=== PATIENT | male | born 1990 | race Caucasian/White ===

== ENCOUNTER 2018-08-12 10:12 | Inpatient (IN) | payer BC ==
[2018-08-12 10:28] VITALS: BMI 20.7
--- NOTE | 2018-08-12 12:49 | HP ---
COWS - Scale Resting Pulse: 1= [place] 81-100 Sweatin= Chills/Flushing Restless Observation: 3= Extraneous Movement Pupil Size: 2= Moderately Dilated Bone or Joint Aches: 2= Severe Diffuse Aches Runny Nose/ Eye Tearin= Runny Nose/Eyes GI Upset > 30mins: 2= Nausea/Diarrhea Tremor Observation: 2= Slight Tremor Visible Yawning Observation: 2= >3x During Session Anxiety or Irritability: 2=Irritable/Anxious Goose Flesh Skin: 0=Smooth Skin COWS Score: 19 CIWA Score Nausea/Vomitin Muscle Tremors: 2 Anxiety: 2 Agitation: 2 Paroxysmal Sweats: 1-Minimal Palms Moist Orientation: 0-Oriented Tacttile Disturbances: 1-Very Mild Itch/Numbness Auditory Disturbances: 1-Very Mild Visual Disturbances: 0-None Headache: 2-Mild CIWA-Ar Total Score: 13 - Admission Criteria OASAS Guidelines: Admission for Medically Managed Detox: Requires at least one of the followin. CIWA greater than 12 2. Seizures within the past 24 hours 3. Delirium tremens within the past 24 hours 4. Hallucinations within the past 24 hours 5. Acute intervention needed for co occurring medical disorder 6. Acute intervention needed for co occurring psychiatric disorder 7. Severe withdrawal that cannot be handled at a lower level of care (continued vomiting, continued diarrhea, abnormal vital signs) requiring intravenous medication and/or fluids 8. Patient presents the following: CIWA greater than 12 Admission Criteria Met: Admission criteria met Admission ROS S - [facility] Chief Complaint: i am here to stop using heroin and xanax Allergies/Adverse Reactions: Allergies Allergy/AdvReac Type Severity Reaction Status Date / Time codeine Allergy Severe Hives Verified 08/12/18 11:44 History of Present Illness: this 28 years old male with heroin and xanax dependence,seeking detox, withdrawal symptom , multiple admissions in detox and rehab but keep relapsing last detox [facility] in 06/28/18 to 06/29/18 not completed nicotine dependence 1 pack /day, weight loss longest period of sobriety 8 months Exam Limitations: No Limitations - Ebola screening Have you traveled outside of the country in the last 21 days: No Have you had contact with anyone from an Ebola affected area: No Have you been sick,other than usual withdrawal symptoms: No Do you have a fever: No - Review of Systems Constitutional: Chills, Loss of Appetite, Malaise, Night Sweats, Changes in sleep, Weakness, Unintentional Wgt. Loss EENT: reports: Tearing, Nose Congestion Respiratory: reports: No Symptoms reported Cardiac: reports: No Symptoms Reported GI: reports: Diarrhea, Nausea, Abdominal cramping : reports: No Symptoms Reported Musculoskeletal: reports: Back Pain, Joint Pain, Muscle Pain, Joint Stiffness Integumentary: reports: Dryness Neuro: reports: Headache, Tremors Endocrine: reports: No Symptoms Reported Hematology: reports: No Symptoms Reported Psychiatric: reports: No Sypmtoms Reported, Judgement Intact, Mood/Affect Appropiate, Orientated x3, Agitated, Anxious, other Other Systems: Reviewed and Negative Patient History - Patient Medical History Hx Asthma: No Hx Chronic Obstructive Pulmonary Disease (COPD): No Hx Cardiac Disorders: No Hx Congestive Heart Failure: No Hx Hypertension: No Hx Hypercholesterolemia: No Hx Pacemaker: No HX Cerebrovascular Accident: No Hx Seizures: Yes (drug related-last episode was in 2017) Hx Dementia: No Hx Diabetes: No Hx Gastrointestinal Disorders: No Hx Liver Disease: No Hx Genitourinary Disorders: No Hx Sexually Transmitted Disorders: No Hx Renal Disease (ESRD): No Hx Thyroid Disease: No Hx Human Immunodeficiency Virus (HIV): No (never been tested) Hx Hepatitis C: No Hx Depression: No Hx Suicide Attempt: No Hx Bipolar Disorder: No Hx Schizophrenia: No Other Medical History: no suicidal,no homicidal - Patient Surgical History Past Surgical History: Yes Hx Neurologic Surgery: No Hx Cataract Extraction: No Hx Cardiac Surgery: No Hx Lung Surgery: No Hx Breast Surgery: No Hx Breast Biopsy: No Hx Abdominal Surgery: No Hx Appendectomy: No Hx Cholecystectomy: No Hx Genitourinary Surgery: No Hx Section: No Hx Orthopedic Surgery: No Other Surgical History: right inguinal hernia at age 4 mos. Anesthesia Reaction: No - PPD History Previous Implant?: Yes Documented Results: Negative w/o proof Implanted On Prior R Admission?: No PPD to be Administered?: Yes - Smoking Cessation Smoking history: Current every day smoker Have you smoked in the past 12 months: Yes Aproximately how many cigarettes per day: 20 Hx Chewing Tobacco Use: No Initiated information on smoking cessation: Yes 'Breaking Loose' booklet given: 08/12/18 - Substance & Tx. History Hx Alcohol Use: No Hx Substance Use: Yes Substance Use Type: Heroin, Tranquilizers Hx Substance Use Treatment: Yes ([facility] 06/28/18 to 06/29/18 not completed) - Substances Abused Heroin Route: Injection Frequency: Daily Amount used: 25-30 bags Age of first use: 22 Date of Last Use: 08/11/18 Xanax/Klonopin/Valium Route: Oral Frequency: Daily Amount used: 6 mg./16 mg./12 mg. Age of first use: 15 Date of Last Use: 08/11/18 Family Disease History - Family Disease History Family History: Denies Admission Physical Exam [facility] - Vital Signs Vital Signs: Vital Signs - 24 hr 08/12/18 10:20 Temperature 98.6 F Pulse Rate 89 Respiratory 18 Rate Blood Pressure 115/66 - Physical General Appearance: Yes: Moderate Distress, Tremorous, Irritable, Sweating, Anxious HEENTM: Yes: Normal ENT Inspection, TONI, Pharynx Normal Respiratory: Yes: Within Normal Limits, Lungs Clear, Normal Breath Sounds Neck: Yes: Within Normal Limits, Supple, Trachea in good position Breast: Yes: Within Normal Limits Cardiology: Yes: Within Normal Limits, Regular Rhythm, Regular Rate, S1, S2 Abdominal: Yes: Within Normal Limits, Normal Bowel Sounds, Non Tender, Flat, Soft Genitourinary: Yes: Within Normal Limits Back: Yes: Within Normal Limits, Normal Inspection, Muscle Spasm Musculoskeletal: Yes: Within Normal Limits, full range of Motion, Muscle Pain Extremities: Yes: Within Normal Limits, Tremors Neurological: Yes: aerospace control and warning systems II-XII NML intact, Fully Oriented, Alert, Motor Strength 5/5 Integumentary: Yes: Dry, Track Regan Lymphatic: Yes: Within Normal Limits - Diagnostic (1) Opioid dependence with withdrawal Current Visit: Yes Status: Acute (2) Uncomplicated sedative, hypnotic or anxiolytic withdrawal Current Visit: Yes Status: Acute (3) Weight loss Current Visit: Yes Status: Acute (4) IVDU (intravenous drug user) Current Visit: Yes Status: Acute (5) Nicotine dependence Current Visit: Yes Status: Acute Cleared for Admission [facility] - Detox or Rehab [facility] Level of Care: Medically Managed Detox Regimen/Protocol: Methadone/Valium S Breath Alcohol Content Breath Alcohol Content: 0 Urine Drug Screen - Results Drug Screen Negative: No Urine Drug Screen Results: THC-Marijuana, OPI-Opiates, MDMA-Ecstasy, BZO- Benzodiazepines, MTD-Methadone, FEN-Fentanyl Inpatient Rehab Admission - Rehab Decision to Admit Inpatient rehab admission?: No
[2018-08-12] MEDS ORDERED: guaiFENesin/D-METHORPHAN HB 10 ML UNIT-DOSE CUPS PO PRN (13:08)
[2018-08-12] MEDS ORDERED: MAG HYDROX/AL HYDROX/SIMETH 30 ML UNIT-DOSE CUP PO PRN (13:08)
[2018-08-12] MEDS ORDERED: ACETAMINOPHEN 325 MG TABLET (FP) PO PRN (13:08)
[2018-08-12] MEDS ORDERED: P-EPHED 60MG/TRIPROLIDI 2.5MG TABLET PO PRN (13:08)
[2018-08-12] MEDS ORDERED: IBUPROFEN 400 MG TABLET (FP) PO PRN (13:08)
[2018-08-12] MEDS ORDERED: MAGNESIUM HYDROX 2400MG/30ML ORAL SUSPENSION 30 ML CUP PO PRN (13:08)
[2018-08-12] MEDS ORDERED: MENTHOL/PHENOL 1 EACH UD MM PRN (13:08)
[2018-08-12] MEDS ORDERED: MAGNESIUM CITRATE 300 ML BOTTLE PO PRN (13:08)
[2018-08-12] MEDS ORDERED: LOPERAMIDE HCL 2 MG CAPSULE PO PRN (13:08)
[2018-08-12] MEDS ORDERED: diazePAM 5 MG TABLET PO ONE (13:45)
[2018-08-12] MEDS ORDERED: METHADONE HCL 10 MG TABLET (FOR DETOX USE ONLY) PO ONE ×2 (13:45→23:00)
[2018-08-12] MEDS: cloNIDine HCL 0.1 MG TABLET PO SCH ×2 (14:17→22:30)
[2018-08-12] MEDS: NICOTINE 21 MG/24 HOURS TOPICAL PATCH TD SCH (14:18)
[2018-08-12] MEDS: diazePAM 5 MG TABLET PO SCH ×2 (14:43→22:30)
[2018-08-12] MEDS: diazePAM 5 MG TABLET PO PRN (18:37)
[2018-08-12] MEDS: NICOTINE POLACRILEX 2 MG GUM BC PRN ×2 (19:56→22:38)
[2018-08-12] MEDS: THIAMINE HCL 100 MG TABLET (FP) PO SCH (22:30)
[2018-08-12] MEDS: MELATONIN 5 MG TABLETS PO PRN (22:30)
[2018-08-13] MEDS: diazePAM 5 MG TABLET PO PRN ×3 (00:39→17:33)
[2018-08-13] MEDS: diazePAM 5 MG TABLET PO SCH ×3 (06:52→22:11)
[2018-08-13] MEDS ORDERED: METHADONE HCL 10 MG TABLET (FOR DETOX USE ONLY) PO SCH (10:00)
[2018-08-13] MEDS: PRENATAL VITAMINS W/ FOLIC ACID TABLET (FP) PO SCH (10:34)
[2018-08-13] MEDS: NICOTINE 21 MG/24 HOURS TOPICAL PATCH TD SCH (10:34)
[2018-08-13] MEDS: cloNIDine HCL 0.1 MG TABLET PO SCH ×2 (10:34→22:12)
[2018-08-13 10:36] LABS: ALBUMIN 3.5 g/dl (3.4-5.0); ALK PHOS 68 U/L (45-117); ANION GAP 5 MMOL/L (8-16); BILIRUBIN,TOTAL 0.4 mg/dL (0.2-1); BLOOD UREA NITROGEN 9 mg/dL (7-18); CALCIUM 9.2 mg/dL (8.5-10.1); CHLORIDE 103 mmol/L (98-107); CO2 30 mmol/L (21-32); CREATININE 0.8 mg/dL (0.55-1.3); GLUCOSE,RANDOM 83 mg/dL (74-106); POTASSIUM 3.8 mmol/L (3.5-5.1); SGOT/AST 18 U/L (15-37); SGPT/ALT 26 U/L (13-61); SODIUM 138 mmol/L (136-145); TOT PROT 6.5 g/dl (6.4-8.2)
[2018-08-13 10:38] LABS: HEMATOCRIT 36.9 % (35.4-49); HEMOGLOBIN 12.9 GM/dL (11.7-16.9); MCH 29.9 pg (25.7-33.7); MEAN CELL VOLUME 85.5 fl (80-96); MEAN PLT VOLUME 7.9 fl (7.5-11.1); PLATELET COUNT 243 K/MM3 (134-434); RBC 4.32 M/mm3 (4.00-5.60); RDW 13.2 % (11.9-15.9)
--- NOTE | 2018-08-13 17:53 | PN ---
[facility] COWS - Scale Resting Pulse: 0= ME 80 or Below Sweatin=Flushed/Facial Moisture Restless Observation: 1= Difficult to Sit Still Pupil Size: 0= Normal to Room Light Bone or Joint Aches: 0= None Runny Nose/ Eye Tearin= Nasal Congestion GI Upset > 30mins: 0= None Tremor Observation of Outstretched Hands: 2= Slight Tremor Visible Yawning Observation: 1= 1-2x During Session Anxiety or Irritability: 1=Feels Anxious/Irritable Goose Flesh Skin: 0=Smooth Skin COWS Score: 8 [facility] Progress Note (SOAP) Subjective: Sweats abd discomfort Objective: 08/13/18 17:35 in bed in no distress Vital Signs - 24 hr 08/12/18 08/13/18 08/13/18 21:21 00:30 03:30 Temperature 97.7 F Pulse Rate 81 Respiratory 16 18 18 Rate Blood Pressure 108/63 08/13/18 08/13/18 08/13/18 06:11 06:52 09:19 Temperature 96.9 F L 97.3 F L Pulse Rate 76 68 65 Respiratory 16 18 Rate Blood Pressure 91/56 L 92/56 L 91/51 L 08/13/18 08/13/18 13:15 17:20 Temperature 97.2 F L 97.8 F Pulse Rate 59 L 69 Respiratory 18 16 Rate Blood Pressure 96/50 L 102/61 states his HR and BP runs low at rest normally Laboratory Last Values WBC 6.0 K/mm3 (4.0-10.0) 08/13/18 07:40 RBC 4.32 M/mm3 (4.00-5.60) 08/13/18 07:40 Hgb 12.9 GM/dL (11.7-16.9) 08/13/18 07:40 Hct 36.9 % (35.4-49) 08/13/18 07:40 MCV 85.5 fl (80-96) 08/13/18 07:40 MCH 29.9 pg (25.7-33.7) 08/13/18 07:40 MCHC 35.0 g/dl (32.0-35.9) 08/13/18 07:40 RDW 13.2 % (11.9-15.9) 08/13/18 07:40 Plt Count 243 K/MM3 (134-434) 08/13/18 07:40 MPV 7.9 fl (7.5-11.1) 08/13/18 07:40 Sodium 138 mmol/L (136-145) 08/13/18 07:40 Potassium 3.8 mmol/L (3.5-5.1) 08/13/18 07:40 Chloride 103 mmol/L (98-107) 08/13/18 07:40 Carbon Dioxide 30 mmol/L (21-32) 08/13/18 07:40 Anion Gap 5 MMOL/L (8-16) L 08/13/18 07:40 BUN 9 mg/dL (7-18) 08/13/18 07:40 Creatinine 0.8 mg/dL (0.55-1.3) 08/13/18 07:40 Creat Clearance w eGFR > 60 (>60) 08/13/18 07:40 Random Glucose 83 mg/dL (74-106) 08/13/18 07:40 Calcium 9.2 mg/dL (8.5-10.1) 08/13/18 07:40 Total Bilirubin 0.4 mg/dL (0.2-1) 08/13/18 07:40 AST 18 U/L (15-37) 08/13/18 07:40 ALT 26 U/L (13-61) 08/13/18 07:40 Alkaline Phosphatase 68 U/L (45-117) 08/13/18 07:40 Total Protein 6.5 g/dl (6.4-8.2) 08/13/18 07:40 Albumin 3.5 g/dl (3.4-5.0) 08/13/18 07:40 RPR Titer Nonreactive (NONREACTIVE) 08/13/18 07:40 HIV 1&2 Antibody Screen Negative 08/13/18 07:40 HIV P24 Antigen Negative 08/13/18 07:40 Assessment: 08/13/18 17:53 withdrawal sx Plan: Continue detox Increase hydration
[2018-08-13] MEDS: THIAMINE HCL 100 MG TABLET (FP) PO SCH (22:11)
[2018-08-13] MEDS: CYCLOBENZAPRINE HCL 10 MG TABLET (FP) PO PRN (22:12)
[2018-08-13] MEDS: MELATONIN 5 MG TABLETS PO PRN (22:12)
--- NOTE | 2018-08-13 22:19 | EKG ---
Test Reason : Blood Pressure : / mmHG Vent. Rate : 088 BPM Atrial Rate : 088 BPM P-R Int : 160 ms QRS Dur : 096 ms QT Int : 376 ms P-R-T Axes : 069 066 064 degrees QTc Int : 454 ms NORMAL SINUS RHYTHM NORMAL ECG NO PREVIOUS ECGS AVAILABLE Confirmed by ANGI FUNES MD ([id number]) on 08/13/2018 10:18:49 PM Referred By: Confirmed By:ANGI FUNES MD
[2018-08-14] MEDS: diazePAM 5 MG TABLET PO PRN ×5 (01:17→20:32)
[2018-08-14] MEDS: METHADONE HCL 5 MG TABLET (FOR DETOX USE ONLY) PO SCH (10:21)
[2018-08-14] MEDS: PRENATAL VITAMINS W/ FOLIC ACID TABLET (FP) PO SCH (10:21)
[2018-08-14] MEDS: diazePAM 5 MG TABLET PO SCH ×2 (10:22→22:14)
[2018-08-14] MEDS: NICOTINE 21 MG/24 HOURS TOPICAL PATCH TD SCH (10:22)
[2018-08-14] MEDS: cloNIDine HCL 0.1 MG TABLET PO SCH ×2 (10:23→22:14)
--- NOTE | 2018-08-14 10:59 | PN ---
[facility] CIWA - CIWA Score Nausea/Vomitin-Mild Nausea/No Vomiting Muscle Tremors: 2 Anxiety: 3 Agitation: 3 Paroxysmal Sweats: 1-Minimal Palms Moist Orientation: 1-Uncertain about Date Tacttile Disturbances: 0-None Auditory Disturbances: 0-None Visual Disturbances: 0-None Headache: 1-Very Mild CIWA-Ar Total Score: 12 BHS COWS - Scale Resting Pulse: 0= [place] 80 or Below Sweatin= Chills/Flushing Restless Observation: 0= Sits Still Pupil Size: 0= Normal to Room Light Bone or Joint Aches: 2= Severe Diffuse Aches Runny Nose/ Eye Tearin= Nasal Congestion GI Upset > 30mins: 1= Stomach Cramp Tremor Observation of Outstretched Hands: 2= Slight Tremor Visible Yawning Observation: 1= 1-2x During Session Anxiety or Irritability: 1=Feels Anxious/Irritable Goose Flesh Skin: 0=Smooth Skin COWS Score: 9 [facility] Progress Note (SOAP) Subjective: anxiety tremor sweating restlessness body aches muscle cramping Objective: 08/14/18 11:01 Vital Signs Temperature 97.7 F 08/14/18 09:19 Pulse Rate 61 08/14/18 09:19 Respiratory Rate 18 08/14/18 09:19 Blood Pressure 96/54 L 08/14/18 09:19 O2 Sat by Pulse Oximetry (%) Laboratory Last Values WBC 6.0 K/mm3 (4.0-10.0) 08/13/18 07:40 RBC 4.32 M/mm3 (4.00-5.60) 08/13/18 07:40 Hgb 12.9 GM/dL (11.7-16.9) 08/13/18 07:40 Hct 36.9 % (35.4-49) 08/13/18 07:40 MCV 85.5 fl (80-96) 08/13/18 07:40 MCH 29.9 pg (25.7-33.7) 08/13/18 07:40 MCHC 35.0 g/dl (32.0-35.9) 08/13/18 07:40 RDW 13.2 % (11.9-15.9) 08/13/18 07:40 Plt Count 243 K/MM3 (134-434) 08/13/18 07:40 MPV 7.9 fl (7.5-11.1) 08/13/18 07:40 Sodium 138 mmol/L (136-145) 08/13/18 07:40 Potassium 3.8 mmol/L (3.5-5.1) 08/13/18 07:40 Chloride 103 mmol/L (98-107) 08/13/18 07:40 Carbon Dioxide 30 mmol/L (21-32) 08/13/18 07:40 Anion Gap 5 MMOL/L (8-16) L 08/13/18 07:40 BUN 9 mg/dL (7-18) 08/13/18 07:40 Creatinine 0.8 mg/dL (0.55-1.3) 08/13/18 07:40 Creat Clearance w eGFR > 60 (>60) 08/13/18 07:40 Random Glucose 83 mg/dL (74-106) 08/13/18 07:40 Calcium 9.2 mg/dL (8.5-10.1) 08/13/18 07:40 Total Bilirubin 0.4 mg/dL (0.2-1) 08/13/18 07:40 AST 18 U/L (15-37) 08/13/18 07:40 ALT 26 U/L (13-61) 08/13/18 07:40 Alkaline Phosphatase 68 U/L (45-117) 08/13/18 07:40 Total Protein 6.5 g/dl (6.4-8.2) 08/13/18 07:40 Albumin 3.5 g/dl (3.4-5.0) 08/13/18 07:40 RPR Titer Nonreactive (NONREACTIVE) 08/13/18 07:40 HIV 1&2 Antibody Screen Negative 08/13/18 07:40 HIV P24 Antigen Negative 08/13/18 07:40 lab noted Assessment: 08/14/18 11:01 withdrawal sx Plan: continue detox
[2018-08-14] MEDS: NICOTINE POLACRILEX 2 MG GUM BC PRN (21:10)
[2018-08-14] MEDS: THIAMINE HCL 100 MG TABLET (FP) PO SCH (22:14)
[2018-08-14] MEDS: CYCLOBENZAPRINE HCL 10 MG TABLET (FP) PO PRN (22:14)
[2018-08-14] MEDS: MELATONIN 5 MG TABLETS PO PRN (22:14)
[2018-08-14] MEDS ORDERED: QUEtiapine FUMARATE 50 MG TABLET PO ONE (22:15)
[2018-08-15] MEDS: diazePAM 5 MG TABLET PO PRN ×2 (05:01→12:30)
--- NOTE | 2018-08-15 09:45 | PN ---
S CIWA - CIWA Score Nausea/Vomitin-No Nausea/No Vomiting Muscle Tremors: 1-None Visible, but [place] Anxiety: 3 Agitation: 2 Paroxysmal Sweats: 1-Minimal Palms Moist Orientation: 0-Oriented Tacttile Disturbances: 0-None Auditory Disturbances: 0-None Visual Disturbances: 0-None Headache: 1-Very Mild CIWA-Ar Total Score: 8 [facility] COWS - Scale Resting Pulse: 1= [place] 81-100 Sweatin= Chills/Flushing Restless Observation: 0= Sits Still Pupil Size: 0= Normal to Room Light Bone or Joint Aches: 1= Mild Discomfort Runny Nose/ Eye Tearin= Nasal Congestion GI Upset > 30mins: 0= None Tremor Observation of Outstretched Hands: 1= Tremor [place], Not Seen Yawning Observation: 0= None Anxiety or Irritability: 1=Feels Anxious/Irritable Goose Flesh Skin: 0=Smooth Skin COWS Score: 6 [facility] Progress Note (SOAP) Subjective: patient was doing well with seroquel 50 mg that as per patient statement " taking seroquel 50 mg at home" anxiety restlessness body aches trouble with concentration Objective: 08/15/18 09:44 Vital Signs Temperature 96.6 F L 08/15/18 09:41 Pulse Rate 71 08/15/18 09:41 Respiratory Rate 18 08/15/18 09:41 Blood Pressure 106/62 08/15/18 09:41 O2 Sat by Pulse Oximetry (%) Laboratory Last Values WBC 6.0 K/mm3 (4.0-10.0) 08/13/18 07:40 RBC 4.32 M/mm3 (4.00-5.60) 08/13/18 07:40 Hgb 12.9 GM/dL (11.7-16.9) 08/13/18 07:40 Hct 36.9 % (35.4-49) 08/13/18 07:40 MCV 85.5 fl (80-96) 08/13/18 07:40 MCH 29.9 pg (25.7-33.7) 08/13/18 07:40 MCHC 35.0 g/dl (32.0-35.9) 08/13/18 07:40 RDW 13.2 % (11.9-15.9) 08/13/18 07:40 Plt Count 243 K/MM3 (134-434) 08/13/18 07:40 MPV 7.9 fl (7.5-11.1) 08/13/18 07:40 Sodium 138 mmol/L (136-145) 08/13/18 07:40 Potassium 3.8 mmol/L (3.5-5.1) 08/13/18 07:40 Chloride 103 mmol/L (98-107) 08/13/18 07:40 Carbon Dioxide 30 mmol/L (21-32) 08/13/18 07:40 Anion Gap 5 MMOL/L (8-16) L 08/13/18 07:40 BUN 9 mg/dL (7-18) 08/13/18 07:40 Creatinine 0.8 mg/dL (0.55-1.3) 08/13/18 07:40 Creat Clearance w eGFR > 60 (>60) 08/13/18 07:40 Random Glucose 83 mg/dL (74-106) 08/13/18 07:40 Calcium 9.2 mg/dL (8.5-10.1) 08/13/18 07:40 Total Bilirubin 0.4 mg/dL (0.2-1) 08/13/18 07:40 AST 18 U/L (15-37) 08/13/18 07:40 ALT 26 U/L (13-61) 08/13/18 07:40 Alkaline Phosphatase 68 U/L (45-117) 08/13/18 07:40 Total Protein 6.5 g/dl (6.4-8.2) 08/13/18 07:40 Albumin 3.5 g/dl (3.4-5.0) 08/13/18 07:40 RPR Titer Nonreactive (NONREACTIVE) 08/13/18 07:40 HIV 1&2 Antibody Screen Negative 08/13/18 07:40 HIV P24 Antigen Negative 08/13/18 07:40 lab noted Assessment: 08/15/18 09:44 benzo and opiate withdrawal sx Plan: continue detox
[2018-08-15] MEDS: PRENATAL VITAMINS W/ FOLIC ACID TABLET (FP) PO SCH (10:20)
[2018-08-15] MEDS: diazePAM 5 MG TABLET PO SCH ×2 (10:21→22:15)
[2018-08-15] MEDS: METHADONE HCL 5 MG TABLET (FOR DETOX USE ONLY) PO SCH (10:21)
[2018-08-15] MEDS: cloNIDine HCL 0.1 MG TABLET PO SCH ×2 (10:21→22:27)
[2018-08-15] MEDS: NICOTINE 21 MG/24 HOURS TOPICAL PATCH TD SCH (10:21)
[2018-08-15] MEDS ORDERED: ONDANSETRON *ODT* 4 MG TABLET SL ONE (10:30)
[2018-08-15] MEDS: hydrOXYzine PAMOATE 25 MG CAPSULE (FP) PO PRN (18:25)
[2018-08-15] MEDS ORDERED: QUEtiapine FUMARATE 50 MG TABLET PO ONE (22:00)
[2018-08-15] MEDS: CYCLOBENZAPRINE HCL 10 MG TABLET (FP) PO PRN (22:15)
[2018-08-15] MEDS: THIAMINE HCL 100 MG TABLET (FP) PO SCH (22:15)
[2018-08-15] MEDS: MELATONIN 5 MG TABLETS PO PRN (22:17)
[2018-08-16] MEDS ORDERED: diazePAM 5 MG TABLET PO SCH (10:00)
[2018-08-16] MEDS ORDERED: METHADONE HCL 10 MG TABLET (FOR DETOX USE ONLY) PO SCH (10:00)
[2018-08-16] MEDS: cloNIDine HCL 0.1 MG TABLET PO SCH (10:21)
[2018-08-16] MEDS: PRENATAL VITAMINS W/ FOLIC ACID TABLET (FP) PO SCH (10:21)
[2018-08-16] MEDS: NICOTINE 21 MG/24 HOURS TOPICAL PATCH TD SCH (11:01)
--- NOTE | 2018-08-16 11:30 | PN ---
S CIWA - CIWA Score Nausea/Vomitin-No Nausea/No Vomiting Muscle Tremors: 1-None Visible, but [place] Anxiety: 1-Mildly Anxious Agitation: 1-Slight > Activity Paroxysmal Sweats: 1-Minimal Palms Moist Orientation: 0-Oriented Tacttile Disturbances: 0-None Auditory Disturbances: 0-None Visual Disturbances: 0-None Headache: 0-None Present CIWA-Ar Total Score: 4 [facility] COWS - Scale Resting Pulse: 0= [place] 80 or Below Sweatin= Chills/Flushing Restless Observation: 0= Sits Still Pupil Size: 0= Normal to Room Light Bone or Joint Aches: 1= Mild Discomfort Runny Nose/ Eye Tearin= None GI Upset > 30mins: 0= None Tremor Observation of Outstretched Hands: 1= Tremor [place], Not Seen Yawning Observation: 0= None Anxiety or Irritability: 1=Feels Anxious/Irritable Goose Flesh Skin: 0=Smooth Skin COWS Score: 4 [facility] Progress Note (SOAP) Subjective: feeling better less tremor mild sweating recent experience low bp discontinue clonidine patient is doing well with seroquel 50 mg for insomnia during the detox regimen Objective: 08/16/18 11:29 Vital Signs Temperature 96.6 F L 08/16/18 09:57 Pulse Rate 49 L 08/16/18 09:57 Respiratory Rate 16 08/16/18 09:57 Blood Pressure 106/67 08/16/18 10:21 O2 Sat by Pulse Oximetry (%) Laboratory Last Values WBC 6.0 K/mm3 (4.0-10.0) 08/13/18 07:40 RBC 4.32 M/mm3 (4.00-5.60) 08/13/18 07:40 Hgb 12.9 GM/dL (11.7-16.9) 08/13/18 07:40 Hct 36.9 % (35.4-49) 08/13/18 07:40 MCV 85.5 fl (80-96) 08/13/18 07:40 MCH 29.9 pg (25.7-33.7) 08/13/18 07:40 MCHC 35.0 g/dl (32.0-35.9) 08/13/18 07:40 RDW 13.2 % (11.9-15.9) 08/13/18 07:40 Plt Count 243 K/MM3 (134-434) 08/13/18 07:40 MPV 7.9 fl (7.5-11.1) 08/13/18 07:40 Sodium 138 mmol/L (136-145) 08/13/18 07:40 Potassium 3.8 mmol/L (3.5-5.1) 08/13/18 07:40 Chloride 103 mmol/L (98-107) 08/13/18 07:40 Carbon Dioxide 30 mmol/L (21-32) 08/13/18 07:40 Anion Gap 5 MMOL/L (8-16) L 08/13/18 07:40 BUN 9 mg/dL (7-18) 08/13/18 07:40 Creatinine 0.8 mg/dL (0.55-1.3) 08/13/18 07:40 Creat Clearance w eGFR > 60 (>60) 08/13/18 07:40 Random Glucose 83 mg/dL (74-106) 08/13/18 07:40 Calcium 9.2 mg/dL (8.5-10.1) 08/13/18 07:40 Total Bilirubin 0.4 mg/dL (0.2-1) 08/13/18 07:40 AST 18 U/L (15-37) 08/13/18 07:40 ALT 26 U/L (13-61) 08/13/18 07:40 Alkaline Phosphatase 68 U/L (45-117) 08/13/18 07:40 Total Protein 6.5 g/dl (6.4-8.2) 08/13/18 07:40 Albumin 3.5 g/dl (3.4-5.0) 08/13/18 07:40 RPR Titer Nonreactive (NONREACTIVE) 08/13/18 07:40 HIV 1&2 Antibody Screen Negative 08/13/18 07:40 HIV P24 Antigen Negative 08/13/18 07:40 lab noted Assessment: 08/16/18 11:29 mild benzo and opiate withdrawal sx 08/16/18 11:29 insomnia Plan: continue detox seroquel 50 mg x 1 hs
[2018-08-16] MEDS: hydrOXYzine PAMOATE 25 MG CAPSULE (FP) PO PRN ×3 (13:45→21:43)
[2018-08-16] MEDS: THIAMINE HCL 100 MG TABLET (FP) PO SCH (21:40)
[2018-08-16] MEDS: MELATONIN 5 MG TABLETS PO PRN (21:43)
[2018-08-16] MEDS ORDERED: QUEtiapine FUMARATE 50 MG TABLET PO ONE (22:00)
[2018-08-17] MEDS: hydrOXYzine PAMOATE 25 MG CAPSULE (FP) PO PRN (05:32)
[2018-08-17] MEDS: CYCLOBENZAPRINE HCL 10 MG TABLET (FP) PO PRN (05:32)
[2018-08-17] MEDS ORDERED: METHADONE HCL 5 MG TABLET (FOR DETOX USE ONLY) PO SCH (06:00)
[2018-08-17 09:13] VITALS: BP 92/59; PULSE 72; TEMP 98.1
--- NOTE | 2018-08-17 10:29 | DS ---
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 - Physical Exam Results Vital Signs: Vital Signs Temperature 98.1 F 08/17/18 09:10 Pulse Rate 72 08/17/18 09:10 Respiratory Rate 16 08/17/18 09:10 Blood Pressure 92/59 L 08/17/18 09:10 O2 Sat by Pulse Oximetry (%) Pertinent Admission Physical Exam Findings: benzo and opiate withdrawal sx Laboratory Last Values WBC 6.0 K/mm3 (4.0-10.0) 08/13/18 07:40 RBC 4.32 M/mm3 (4.00-5.60) 08/13/18 07:40 Hgb 12.9 GM/dL (11.7-16.9) 08/13/18 07:40 Hct 36.9 % (35.4-49) 08/13/18 07:40 MCV 85.5 fl (80-96) 08/13/18 07:40 MCH 29.9 pg (25.7-33.7) 08/13/18 07:40 MCHC 35.0 g/dl (32.0-35.9) 08/13/18 07:40 RDW 13.2 % (11.9-15.9) 08/13/18 07:40 Plt Count 243 K/MM3 (134-434) 08/13/18 07:40 MPV 7.9 fl (7.5-11.1) 08/13/18 07:40 Sodium 138 mmol/L (136-145) 08/13/18 07:40 Potassium 3.8 mmol/L (3.5-5.1) 08/13/18 07:40 Chloride 103 mmol/L (98-107) 08/13/18 07:40 Carbon Dioxide 30 mmol/L (21-32) 08/13/18 07:40 Anion Gap 5 MMOL/L (8-16) L 08/13/18 07:40 BUN 9 mg/dL (7-18) 08/13/18 07:40 Creatinine 0.8 mg/dL (0.55-1.3) 08/13/18 07:40 Creat Clearance w eGFR > 60 (>60) 08/13/18 07:40 Random Glucose 83 mg/dL (74-106) 08/13/18 07:40 Calcium 9.2 mg/dL (8.5-10.1) 08/13/18 07:40 Total Bilirubin 0.4 mg/dL (0.2-1) 08/13/18 07:40 AST 18 U/L (15-37) 08/13/18 07:40 ALT 26 U/L (13-61) 08/13/18 07:40 Alkaline Phosphatase 68 U/L (45-117) 08/13/18 07:40 Total Protein 6.5 g/dl (6.4-8.2) 08/13/18 07:40 Albumin 3.5 g/dl (3.4-5.0) 08/13/18 07:40 RPR Titer Nonreactive (NONREACTIVE) 08/13/18 07:40 HIV 1&2 Antibody Screen Negative 08/13/18 07:40 HIV P24 Antigen Negative 08/13/18 07:40 lab noted - Treatment Hospital Course: Detox Protocol Followed, Detoxed Safely, Responded well, Discharged Condition Good, Rehab Referral Accepted Patient has [facility] - Medication Discharge Medications: Ambulatory Orders Naloxone HCl [Narcan] 4 mg NS ASDIR PRN #1 spray 08/17/18 - Diagnosis (1) Nicotine dependence Current Visit: Yes Status: Acute Qualifiers: Nicotine product type: cigarettes Substance use status: in withdrawal Qualified Code(s): F17.213 - Nicotine dependence, cigarettes, with withdrawal (2) Opioid dependence with withdrawal Current Visit: Yes Status: Acute (3) Uncomplicated sedative, hypnotic or anxiolytic withdrawal Current Visit: Yes Status: Acute (4) Weight loss Current Visit: Yes Status: Acute - AMA Did Patient Leave Against Medical Advice: No
== END 2018-08-17 10:11 | disposition home or self-care (01) | DRG 897 ==
LOC: YASAS 10:12 → Y3N 13:18
PROVIDERS: ADMIT Surgery; ATTEND Surgery
PROC: HZ2ZZZZ Detoxification Services for Substance Abuse Treatment (ICD-10-PCS; principal; 2018-08-12)
DX: F11.23 Opioid dependence with withdrawal (principal); F13.230 Sedative, hypnotic or anxiolytic dependence with withdrawal, uncomplicated; F17.213 Nicotine dependence, cigarettes, with withdrawal; R63.4 Abnormal weight loss; Z68.20 Body mass index [BMI] 20.0-20.9, adult; Z86.69 Personal history of other diseases of the nervous system and sense organs
CPT/HCPCS: 36415; 80053; 85027; 86593; 87389; 93005; 93010; J0735; Q0162